=== PATIENT | male | born 1945 | race Caucasian/White ===

== ENCOUNTER 2018-07-18 17:12 | Emergency (ER) | payer MEDICARE, BC ==
--- NOTE | 2018-07-18 17:42 | EDM.PDOC ---
ED HPI GENERAL MEDICAL PROBLEM - General Chief Complaint: Laceration Stated Complaint: head laceration Time Seen by Provider: 07/18/18 17:24 Source of Information: Reports: Patient History Limitations: Reports: No Limitations - History of Present Illness INITIAL COMMENTS - FREE TEXT/NARRATIVE: Patient hit with the end of a hose while airing out sprinklers. He was hit on the right side behind the ear. No LOC, no headache, no neurologic changes or deficits. He states there was of course lots of bleeding. He has no other complaints. Onset: Today, Sudden Location: Reports: Head Severity: Mild - Related Data Allergies Allergy/AdvReac Type Severity Reaction Status Date / Time Penicillins Allergy Diarrhea Verified 05/11/16 06:30 environmental Allergy Itching Uncoded 05/11/16 06:31 Home Meds: Home Meds Albuterol Sulfate [Albuterol Sulfate HFA] 2 puff INH Q2HR PRN 07/10/15 [History] Tiotropium [Spiriva HandiHaler] 18 mcg INH DAILY 07/10/15 [History] Multivitamin [Multi-Vitamin Daily] 1 tab PO DAILY 07/11/15 [History] Aspirin [Halfprin] 1 tab PO DAILY 05/07/16 [History] Chlorophyllin/Thymol [Chlorophyll] 50 mg PO DAILY 05/07/16 [History] Cholecalciferol (Vitamin D3) [Vitamin D3] 1 tab PO DAILY 05/07/16 [History] Cranberry Extract [Cranberry] 1 cap PO DAILY 05/07/16 [History] Cyanocobalamin (Vitamin B-12) [Vitamin B-12] 1 tab PO DAILY 05/07/16 [History] Fluticasone Propionate [Flovent HFA 110 MCG] 1 puff PO BID 05/07/16 [History] Glucosam/Villa-Col.Cplx/D3/C/Mn [Rfytekynyet-Gffxkerhbye-M2] 1 tab PO DAILY 05/07 [History] Niacin 1 tab PO DAILY 05/07/16 [History] Phosphatidyl Serine 1 cap PO DAILY 05/07/16 [History] Pumpkin Seed Oil/Saw [place] [Saw [place] 160 mg Softgel] 1 tab PO DAILY 05/07 [History] Ubidecarenone [Co Q-10] 1 cap PO DAILY 05/07/16 [History] Vitamin B Complex [B Complex] 1 tab PO DAILY 05/07/16 [History] Vitamin E 1 cap PO DAILY 05/07/16 [History] atorvaSTATin [Lipitor] 10 mg PO DAILY 05/07/16 [History] Past Medical History Respiratory History: Reports: COPD Musculoskeletal History: Reports: Osteoarthritis Endocrine/Metabolic History: Reports: Diabetes, Type II - Past Surgical History Musculoskeletal Surgical History: Reports: Arthroscopic Knee ED ROS GENERAL - Review of Systems Review Of Systems: See Below Constitutional: Reports: No Symptoms HEENT: Reports: No Symptoms Respiratory: Reports: No Symptoms Cardiovascular: Reports: No Symptoms Endocrine: Reports: No Symptoms GI/Abdominal: Reports: No Symptoms : Reports: No Symptoms Musculoskeletal: Reports: No Symptoms Skin: Reports: Wound Neurological: Reports: No Symptoms Psychiatric: Reports: No Symptoms Hematologic/Lymphatic: Reports: No Symptoms Immunologic: Reports: No Symptoms ED EXAM, SKIN/RASH Exam: See Below Exam Limited By: No Limitations General Appearance: Alert, WD/WN, No Apparent Distress Eye Exam: Bilateral Eye: EOMI, Normal Inspection, PERRL Head: Normocephalic, Other (laceration right occiput/parietal area) Neurological: Alert, Oriented, CN II-XII Intact, Normal Cognition, Normal Gait, Normal Reflexes, No Motor/Sensory Deficits Skin: Wound/Incision ED SKIN PROCEDURES - Laceration/Wound Repair Right Sides of Head Lac/Wound length In cm: 1.5 Distal NVT: Neuro & Vascular Intact Skin Prep: Providone-Iodine (Betadine) Exploration/Debridement/Repair: Wound Explored, In a Bloodless Field, No Foreign Material Found Closed with: Viky (5 viky) Departure - Departure Time of Disposition: 17:50 Disposition: Home, Self-Care 01 Condition: Good Clinical Impression: Laceration of head Qualifiers: Encounter type: initial encounter Location of open wound of head: ear Foreign body presence: without foreign body Laterality: right Qualified Code(s): S01.311A - Laceration without foreign body of right ear, initial encounter - Discharge Information *PRESCRIPTION DRUG MONITORING PROGRAM REVIEWED*: No *COPY OF PRESCRIPTION DRUG MONITORING REPORT IN PATIENT MEHUL: No Instructions: Wound Infection, [id number], Head Injury, Adult, [id number], Laceration Care, Adult, [id number] Referrals: Josue perez MD [Primary Care Provider] - Forms: ED Department Discharge Additional Instructions: Please follow up in the clinic for staple removal in 7 days If you have signs of infection including fever over 101.5F, chills, increased redness, swelling, red streak going away from the wound, make sure to go to the clinic. Keep your wound clean and dry, you may wash it with soap and water. If you have any questions or concerns please call the hospital at any time. - Problem List & Annotations (1) Laceration of head SNOMED Code(s): 455318373 Code(s): S01.91XA - LACERATION W/O FOREIGN BODY OF UNSP PART OF HEAD, INIT Status: Acute Priority: Low Current Visit: No Qualifiers: Encounter type: initial encounter Location of open wound of head: ear Foreign body presence: without foreign body Laterality: right Qualified Code (s): S01.311A - Laceration without foreign body of right ear, initial encounter - Problem List Review Problem List Initiated/Reviewed/Updated: Yes - Assessment/Plan Assessment:: head laceration Plan: Please follow up in the clinic for staple removal in 7 days If you have signs of infection including fever over 101.5F, chills, increased redness, swelling, red streak going away from the wound, make sure to go to the clinic. Keep your wound clean and dry, you may wash it with soap and water. If you have any questions or concerns please call the hospital at any time.
[2018-07-18 19:26] VITALS: BP 148/85
== END 2018-07-18 17:55 | disposition home or self-care (01) ==
LOC: VM.ED 17:12
DX: S01.01XA Laceration without foreign body of scalp, initial encounter (principal); E11.9 Type 2 diabetes mellitus without complications; Z79.899 Other long term (current) drug therapy; W22.8XXA Striking against or struck by other objects, initial encounter
CPT/HCPCS: 12001; 12011; 99282; 99282-GF-25

== ENCOUNTER 2025-05-14 19:40 | Emergency (ER) | payer MEDICARE, BC ==
[2025-05-14 19:57] LABS: BASOPHILS ABSOLUTE AUTO 0.0 x10^3/uL (0.0-0.2); BASOPHILS PERCENT AUTO 0.4 % (0.2-1.2); EOSINOPHILS ABSOLUTE AUTO 0.3 x10^3/uL (0.0-0.5); EOSINOPHILS PERCENT AUTO 3.0 % (0.0-4.0); IMMATURE GRAN ABSOLUTE AUTO 0.02 x10^3/uL (0.00-0.07); IMMATURE GRAN PERCENT AUTO 0.20 % (0.00-0.43); LYMPHOCYTES ABSOLUTE AUTO 2.5 x10^3/uL (1.0-4.8); LYMPHOCYTES PERCENT AUTO 21.6 % (25.0-50.0); MONOCYTES ABSOLUTE AUTO 1.3 x10^3/uL (0.0-0.8); MONOCYTES PERCENT AUTO 11.0 % (2.0-11.0); NEUTROPHILS ABSOLUTE AUTO 7.3 x10^3/uL (1.8-7.7); NEUTROPHILS PERCENT AUTO 63.8 % (50.0-80.0); PLATELET COUNT,PLT 345 x10^3/uL (130-400); RED BLOOD CELL COUNT 3.77 x10^6/uL (4.5-6.0); WHITE BLOOD CELL COUNT,WBC 11.4 x10^3/uL (4.0-10.0)
[2025-05-14 20:05] VITALS: BP 159/76; PULSE 93
[2025-05-14 20:11] LABS: A/G RATIO 1.06; ALANINE AMINOTRANSFERASE,ALT 25.0 U/L (16-63); ASPARTATE AMNIOTRANSFERASE,AST 18.0 U/L (15-37); BILIRUBIN TOTAL 0.5 mg/dL (0.2-1.0); BLOOD UREA NITROGEN,BUN 14.0 mg/dL (7-18); CARBON DIOXIDE,CO2 30.0 mmol/L (21-32); CHLORIDE,CL 103.0 mmol/L (98-107); CREATININE 0.9 mg/dL (0.70-1.30); EST CRCL DRUG DOSING (CG) 69.72 mL/min; ESTIMATED GFR 86.0 mL/min (>=60); GLUCOSE RANDOM 122.0 mg/dL (70-99); POTASSIUM,K 5.1 mmol/L (3.5-5.1); PROTEIN TOTAL,TP 6.8 g/dL (6.4-8.2); SODIUM,NA 141.0 mmol/L (136-145)
== END 2025-05-14 20:40 | disposition home or self-care (01) ==
LOC: VM.ED 19:40
DX: I97.621 Postprocedural hematoma of a circulatory system organ or structure following other procedure (principal); J44.9 Chronic obstructive pulmonary disease, unspecified; E11.9 Type 2 diabetes mellitus without complications; Z88.0 Allergy status to penicillin; Z88.8 Allergy status to other drugs, medicaments and biological substances; Z91.09 Other allergy status, other than to drugs and biological substances; Z79.51 Long term (current) use of inhaled steroids; Z79.82 Long term (current) use of aspirin; Z79.899 Other long term (current) drug therapy
CPT/HCPCS: 36415; 80053; 85025; 99282; 99283